=== PATIENT | female | born 1980 ===

== ENCOUNTER 2023-11-04 09:42 | Outpatient (AMB) | payer OTHER, SELFPAY ==
--- NOTE | 2023-11-04 09:48 | MHC.PC.OV ---
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 Allergies No Known Allergies Allergy (Verified 11/04/23 10:21) Medication List - Last Reconciled 11/04/23 by NURY Diana escitalopram oxalate (Lexapro) 5 mg PO DAILY levocetirizine 5 mg PO DAILY triamcinolone acetonide 0.025% 1 appl topical DAILY Tobacco use date assessed: 11/04/23 Dental Screening Dental Screen Date: 11/04/23 Did you have a dental visit in the last 12 months?: Yes Did you have a dental problem in the last 6 months where you did not have access to dental care?: No Was dental information given to patient?: Patient has dentist HPI HPI Comments History of Present Illness Details Patient is a 43-year-old female here to establish care and have annual physical exam. She states she is up-to-date on her mammogram. Is due for OBGYN appointment, will refer. She is up-to-date on her immunizations. She has a past medical history significant for anxiety, eczema. She has a chief complaint of increased anxiety, especially at night, which is interfering with her ability to sleep through the night. Denies any traumatic recent life events. She states that the medication Lexapro helped her with this, but she started feeling better and discontinued the medication on her own 6 months prior to this appointment. Denies SI HI, numbness, dizziness, lethargy, chest pain, shortness a breath. Patient is interested in starting the medication again. Patient has declined therapist at this time. Discussed with patient the benefits of going on a beta-jun based on blood pressure and EKG in office, however patient declined. She would like to take blood pressure measurements and heart rate measurements at home, and report numbers to the office in 2 weeks. PFSH Social History Housing: House e-Cigarette/Vaping Use: Never Used service: No Current occupational status: employed Current occupational exposures/hazards: No Cognitive needs: No Hearing needs: No Vision needs: No Questionnaire PHQ-9 Over the last 2 weeks, how often have you been bothered by any of the following problems? 1. Little interest or pleasure in doing things: not at all 2. Feeling down, depressed, or hopeless: not at all 3. Trouble falling or staying asleep, or sleeping too much: not at all 4. Feeling tired or having little energy: not at all 5. Poor appetite or overeating: not at all 6. Feeling bad about yourself - or that you are a failure or have let yourself or your family down: not at all 7. Trouble concentrating on things, such as reading the newspaper or watching television: not at all 8. Moving or speaking so slowly that other people could have noticed. Or the opposite - being so fidgety or restless that you have been moving around a lot more than usual: not at all 9. Thoughts that you would be better off or of hurting yourself in some way: not at all Total score: 0 Depression Screening Interpretation: Negative Depression Screening Done: Yes 16772 - PHQ-9 Billing: Yes Source: Developed by Drs. Alex Patel, Candy He, Peyman Stephens and colleagues, with an educational maddie from [employer]. Thrive Questionnaire Date Thrive assessed: 11/04/23 I am a: Patient What is your living situation today?: I have a steady place to live Within the past 12 months, did the food you bought not last and you didn't have the money to get more?: Never true Within the past 12 months, did you worry whether your food would run out before you got money to buy more?: Never true Do you have trouble paying for medicines?: Yes Do you have trouble getting transportation to medical appointments?: No Do you have trouble paying your heating and electricity bill?: No Do you have trouble taking care of your child, family member or friend?: No Do you have trouble with day-to-day activities such as bathing, preparing meals, shopping, managing finances, etc.?: No Are you currently unemployed and looking for a job?: No Are you interested in more education?: No Please select the resources that you would like help with: Paying for medicine AUDIT C Alcohol Use Questionnaire (AUDIT-C) 1. How often do you have a drink containing alcohol?: Never 3. How often do you have six or more drinks on one occasion?: Never Total Score: 0 Score Reviewed/Action Taken: Yes EAN-7 AMB Questionnaire EAN-7 Feeling nervous, anxious, or on edge: 2 = More than half the days Not being able to stop or control worryin = More than half the days Worrying too much about different things: 1 = Several days Trouble relaxin = More than half the days Being so restless that it is hard to sit still: 1 = Several days Becoming easily annoyed or irritable: 1 = Several days Feeling afraid as if something awful might happen: 2 = More than half the days Total EAN-7 score (0-4 normal; 5-9 mild; 10-14 moderate; 15-21 severe): 11 Source: Developed by Drs. Alex Patel, Candy He, Peyman Stephens and colleagues, with an educational maddie from [employer]. EAN-7 Assessment Billing EAN-7 Assessment Tool: EAN-7 Assessment 51652 Review of Systems Const Details: Constitutional : No Weight loss, No Fever, No Chills, No Fatigue, No Malaise ENT/Mouth : No sore throat, No Rhinorrhea Eyes: No Eye Pain, No Swelling, No Redness Cardiovascular : No Chest Pain, No SOB, No Dyspnea on Exertion, No Orthopnea, No Edema, No Palpitations Respiratory : No Cough, No Sputum, No Wheezing Gastrointestinal : No Nausea, No Vomiting, No Diarrhea, No Constipation, No abdominal Pain, No Hematochezia, No Melena Genitourinary : No Dysuria, No Urinary Frequency, No Hematuria, Musculoskeletal : No joint pain, No Myalgias, No Joint Swelling Skin : Admits some eczema on back of neck. Neuro : No Weakness, No Numbness, No Dizziness, No Headache Psych : Admits Anxiety/Panic, No Depression Heme/Lymph: No Bruising, No Bleeding,No Lymphadenopathy Endocrine : No Polyuria, No Polydipsia All other systems reviewed and are negative Physical exam (Primary Care) Vital Signs: Last Vital Signs Pulse 104 H 11/04/23 10:56 BP 140/88 H 11/04/23 09:49 Pulse Ox 95 11/04/23 09:49 Oxygen Delivery Method Room Air 11/04/23 09:49 Care Plan Goal for BP management: Patient would like to take blood pressure measurements at home and report numbers to the office in 2 weeks. BMI result Body Mass Index 27.7 Tobacco/Smoking Status: Tobacco use Status Tobacco use date assessed 11/04/23 11/04/23 09:51 e-Cigarette/Vaping Use Never Used 11/04/23 09:51 PHQ-9: PHQ-9 Score PHQ-9: Total score 0 11/04/23 12:11 Depression Screening Interpretation: Negative Thrive Assessment: Date of Thrive Assessment Date Thrive assessed 11/04/23 11/04/23 12:10 Const Other: Appearance: Alert.? Oriented X3.? No acute distress.? Head: Normocephalic, atraumatic, no step-offs or deformities Eyes: Pupils equal, round and reactive to light.? ENT: Pharynx normal.?TM intact, pearly birch. Neck: Normal inspection.? Neck supple.?Full ROM. CVS: Normal heart rate and rhythm.? Pulses normal.? Respiratory: No respiratory distress.? Breath sounds normal.? Abdomen: Soft and nontender.? Skin: Skin warm and dry.? Scaling and erythema of nape. Extremities: No lower extremity edema.? Back: No midline tenderness, no C-spine tenderness, full range of motion, no CVA tenderness bilaterally Neuro: Oriented X 3.? No motor deficit.? No sensory deficit. CN 2-12 intact Office Procedures EKG 32140-[id number], Complete Assessment and Plan Assessment & Plan (1) Eczema: Comment: Will prescribe patient topical cream for eczema. 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 Code(s): L30.9 - Dermatitis, unspecified Qualifiers: Eczema type: other Qualified Code(s): L30.8 - Other specified dermatitis (2) Anxiety: Comment: The patient has experienced an increase in anxiety since abruptly stopping her Lexapro. Patient is started back on Lexapro and has been educated on how to take this medication properly. Will also prescribe hydroxyzine to be taken p.r.n. at night for anxiety insomnia. Patient offered therapy referral, declined. Patient has been educated on signs of worsening symptoms and when to report to the office or when to present to the ER. Code(s): F41.9 - Anxiety disorder, unspecified Plan: Take your medications as prescribed. If you were prescribed antibiotics today, it is important that you take your medication to their entirety, do not skip any doses, do not finish them early. Follow-up with your primary care provider this week. Return to the emergency department with new or worsening symptoms. 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 Code(s): J34.89 - Other specified disorders of nose and nasal sinuses (4) Tachycardia: Comment: Patient's heart rate in office tachycardic. In office EKG performed. Will refer patient for echocardiogram and Cardiology. Code(s): R00.0 - Tachycardia, unspecified Plan: Patient has been educated on signs of worsening symptoms and when to report to the office or when to present to the emergency room. Patient states she understands. Orders: Orders AMB EKG-In Office Today R00.0 - Tachycardia, unspecified Comprehensive Met. Panel Today Z91.89 - Other specified personal risk factors, not elsewhere classified UA CC w/rflx Micro + Cult Today E86.0 - Dehydration Complete Blood Count Auto Diff Today Z13.0 - Encounter for screening for diseases of the blood and blood-forming organs and certain disorders involving the immune mechanism Lipid Panel Today E78.5 - Hyperlipidemia, unspecified Vitamin D 25-OH (D2 and D3) Today Z13.21 - Encounter for screening for nutritional disorder TSH reflex Free T4 Today E03.9 - Hypothyroidism, unspecified CA echo transthoracic complete Today R00.0 - Tachycardia, unspecified Referrals HERB COUNSELOR Referral Z12.4 - Encounter for screening for malignant neoplasm of cervix Allergy & Immunology Referral L30.9 - Dermatitis, unspecified Cardiology Referral R00.0 - Tachycardia, unspecified Medications: New fluticasone propionate 50 mcg/actuation (Allergy Relief (fluticasone)) administer into each nostril 1 spray intranasal DAILY 16 grams 0RF escitalopram oxalate (Lexapro) 5 mg PO DAILY 90 tabs 0RF triamcinolone acetonide 0.025% 1 appl topical DAILY 15 grams 0RF levocetirizine 5 mg PO DAILY 30 tabs 0RF hydroxyzine HCl 25 mg PO BEDTIME 30 tabs 0RF Coding Level of Care Code Est Pt Level 3 (64292) Diagnoses Other eczema L30.8 Eczema type: other Anxiety F41.9 Rhinorrhea J34.89 Tachycardia R00.0 CPT Codes EKG - CPT: [id number], Complete ([id number]) Additional Codes EAN-7 Assessment Billing - EAN-7 Assessment Tool: EAN-7 Assessment 26652 ([id number]) Time Spent (min) 40
[2023-11-04 09:49] VITALS: BP 140/88; PULSE 120; O2SAT 95; BMI 27.7
[2023-11-04 10:56] VITALS: PULSE 104
== END 2023-11-04 12:38 | disposition home or self-care (01) ==
PROVIDERS: Visit Provider Nurse Practitioner Primary Care
DX: L30.8 Other specified dermatitis (principal); F41.9 Anxiety disorder, unspecified; J34.89 Other specified disorders of nose and nasal sinuses; R00.0 Tachycardia, unspecified
CPT/HCPCS: 93000; 99204

== ENCOUNTER 2023-11-07 08:47 | Outpatient (REF) | payer OTHER, SELFPAY ==
[2023-11-07 11:47] LABS: Appearance Urine Clear; Color Urine Yellow; Glucose Urine UA Negative (Negative); Leukocyte Esterase Urine Negative (Negative); Nitrite Urine Negative (Negative); UMIC TRIGGER UACC YES; Urine Blood Moderate (2+) (Negative); Urine Ketones Negative (Negative); Urine Protein Negative (Neg-Trace)
[2023-11-07 11:51] LABS: Bacteria Urine Trace (None Seen); Hyaline Casts Urine 0-2 /LPF (0-2); UACC Culture Trigger YES
[2023-11-07 12:03] LABS: MANUAL DIFF FLAG NO
[2023-11-07 12:25] LABS: Basophils Percent Auto 0.2 % (0-2); Eosinophils Absolute Auto 0.1 X10*3/uL (0.0-0.4); Eosinophils Percent Auto 1.2 % (0-4); Hematocrit 40.1 % (37.0-47.0); Hemoglobin 13.3 g/dl (12.0-16.0); Imm Gran Abs Auto 0.01 X10*3/uL (0.00-0.03); Imm Gran Pct Auto 0.2 % (0.0-0.4); Lymphocytes Percent Auto 19.4 % (20-40); Mean Corpuscular HGB Conc 33.2 g/dl (31.0-35.0); Mean Corpuscular Hemoglobin 28.7 pg (27.0-33.0); Mean Corpuscular Volume 86.6 fL (80.0-98.0); Mean Platelet Volume 10.6 fL (9.4-12.3); Monocytes Absolute Auto 0.4 X10*3/uL (0.1-1.2); Monocytes Percent Auto 7.1 % (2-11); Neutrophils Absolute Auto 3.7 x10*3/uL (2.0-8.3); Neutrophils Percent Auto 71.9 % (45-73); Platelet Count 284 X10*3/uL (160-400); Red Blood Count 4.63 X10*6/uL (4.20-5.50); Red Cell Distribution Width 12.4 % (11.0-16.0); White Blood Count 5.2 X10*3/uL (4.8-10.8)
[2023-11-07 12:52] LABS: Alanine Aminotransferase 13 U/L (0-31); Albumin Level 4.6 g/dL (3.5-5.0); Alkaline Phosphatase 66 U/L (39-117); Anion Gap 14 (12-20); Aspartate Amino Transferase 16 U/L (5-31); Bilirubin Total 0.5 mg/dL (0.0-1.0); Blood Urea Nitrogen 14 mg/dL (9-16); Calcium 9.8 mg/dL (8.4-10.2); Carbon Dioxide 25 mmol/L (22-29); Chloride 105 mmol/L (96-108); Cholesterol 176 mg/dL (<200); Estimated Glomerular Filt Rate > 60; Glucose Random 100 mg/dL (60-115); HDL Cholesterol 50 mg/dL (>40); LDL Cholesterol Calculated 108 mg/dL (<100); Sodium 140 mmol/L (135-145); TSH reflex Free T4 2.27 uIU/mL (0.32-4.0); Total Protein 7.8 g/dL (6.5-8.0); Triglycerides 92 mg/dL (<150)
[2023-11-11 16:48] LABS: Vitamin D 25-OH, D2 <4 ng/mL; Vitamin D 25-OH, D3 21 ng/mL; Vitamin D 25-OH, Total 21 ng/mL (30-100)
== END 2023-11-07 08:48 | disposition home or self-care (01) ==
LOC: HO.HMGCLDS 08:47
PROVIDERS: PCP Nurse Practitioner Primary Care; Visit Provider Nurse Practitioner Primary Care
DX: Z13.0 Encounter for screening for diseases of the blood and blood-forming organs and certain disorders involving the immune mechanism (principal)
CPT/HCPCS: 36415; 80053; 80061; 81001; 82306; 84443; 85025; 87086

== ENCOUNTER → 2023-11-20 08:12 | Outpatient (REF) | payer OTHER, SELFPAY ==
--- NOTE | 2023-11-20 08:14 | CA_ITS ---
Transthoracic Echocardiogram Patient (Last, First, Middle): Zoey Castillo, Gender: Female Date of : 1980 Age: 43 Procedure Date: 11/20/2023 Procedure Type: Transthoracic Echocardiogram Location: OP Height: 157.48 cm Weight: 69.85 kg BSA: 1.71 m2 Heart Rate: 110 bpm BP: 132 / 78 mmHg Mold Burner: NESS Referring MD: Joseph ARRINGTON Tobacco Dipper: Andres John MD Symptoms: R00.0 - Tachycardia, unspecified Study Quality: Adequate ECG Rhythm: Sinus Tachycardia Conclusions: - Essentially normal study Findings Left Ventricle Normal left ventricular cavity size. There is normal left ventricular wall thickness. The left ventricular systolic function is hyperdynamic. The visually estimated ejection fraction is >70%. Spectral Doppler is indicative of a normal filling pattern. Right Ventricle Normal right ventricular cavity size and systolic function. Atria Both atria are normal in size. Interatrial shunt cannot be excluded. Aortic Valve Normal aortic valve structure and function. There is no aortic valve stenosis. There is no aortic valve regurgitation. Mitral Valve Normal mitral valve structure and function. There is trace mitral valve regurgitation. There is no mitral valve stenosis. Pulmonic Valve The pulmonic valve is likely normal. Tricuspid Valve Normal tricuspid valve structure. Tricuspid regurgitation envelope is inadequate for calculation of right ventricular systolic pressure. Normal right atrial pressure. Great Vessels All visible segments of the aorta are normal in size. The visualized portions of the pulmonary artery and branches are normal. Venous The inferior vena cava is normal in size and collapses greater than 50% with inspiration. Pericardium/Pleural There is no evidence of pericardial effusion. Prior Study Comparison No prior study available for comparison. delay in reporting due to technical issues Measurements 2D Linear Measurements IVSd: 0.85 0.6-0.9/0.6-1.0 cm LVIDd: 4.13 3.9-5.3/4.2-5.9 cm LVIDd Index: 2.42 2.4-3.2/2.2-3.1 cm/m2 LVIDs: 2.92 2.0-3.6 cm LVPWd: 0.62 0.7-1.1 cm LA Diam: 2.80 2.7-3.8/3.0-4.0 cm LAIDs Index: 1.64 1.5-2.3 cm/m2 LV Mass: 109.48 67-162/88-224 g LV Mass Index: 64.02 43-95/49-115 g/m2 LVOT Diam: 2.20 3.0+(-)1.3 cm 2D Systolic Function EF 4C: 80.20 >55% EF 2C: 70.70 >55% EF BiP: 75.80 >55% Mitral Valve MV Pk E: 0.86 MV PK A: 0.78 MV Decel Time: 91.00 E/A: 1.10 E'Lateral: 12.80 E'Medial: 9.03 E/E' Med: 9.50 E/E' Lat: 6.70 PHT: 27.00 MVA PHT: 8.15 Decel [place]: 9.40 Aortic Valve AoV Pk Leonard: 1.50 AoV Pk Grad: 9.00 VICKY: 2.67 LVOT LVOT Pk Leonard: 1.12 LVOT Mn Leonard: 0.78 LVOT VTI: 0.22 LVOT Pk Grad: 5.00 LVOT Mn Grad: 3.00 LVOT Diam: 2.20 LVOT Area: 3.80 Diastolic Function MV Pk E: 0.86 MV Pk A: 0.78 E/A: 1.10 E'Medial: 9.03 E/E' Med: 9.50 E' Laterial: 12.80 E/E' Lat: 6.70 Right Ventricle TAPSE (mm): 26.50 TVS' Leonard: 13.70 Tricuspid Valve RA Press: 3.00 Great Vessels Aorta Sinus of Valsalva: 3.10 2.0-3.5 cm Ao Asc: 3.00 2.1-3.4 cm Pulmonary Valve PV Pk Leonard: 1.12 Peak PV Grad: 5.00 Updated in Other Vendor System with Status of Final Andres John MD electronically signed on 11/22/2023 8:42:31 AM with status of Final
== END ==
LOC: HO.CARD 08:12
PROVIDERS: PCP Nurse Practitioner Primary Care; Visit Provider Nurse Practitioner Primary Care
DX: R00.0 Tachycardia, unspecified (principal)
CPT/HCPCS: 93306

== ENCOUNTER → 2023-11-20 08:14 | Outpatient (BNV) | payer OTHER, SELFPAY | PROVIDERS: PCP Nurse Practitioner Primary Care; Visit Provider Internal Medicine Cardiovascular Disease | DX: R00.0 Tachycardia, unspecified (principal) | CPT/HCPCS: 93306 ==

== ENCOUNTER 2024-01-27 11:16 | Outpatient (AMB) | payer OTHER, SELFPAY ==
[2024-01-27 11:38] VITALS: BP 140/78; PULSE 119; O2SAT 100; BMI 26.3
--- NOTE | 2024-01-27 11:38 | A.OFFPC_ITS ---
Vital Signs 01/27/24 11:38 Height 5 ft 2 in Weight 144 lb BMI 26.3 BP 140/78 H Blood Pressure Location Rt brachial Position Sitting Pulse 119 H Pulse Source Pulse Oximeter Pulse Oximetry (%) 100 Oxygen Delivery Method Room Air Intake Visit Reasons: Constipation Intake Note: Pt is here for constipation for about 2 months pt has not tried any remedies Allergies No Known Allergies Allergy (Verified 01/27/24 12:12) Medication List - Last Reconciled 01/27/24 by NURY Diana fluticasone propionate 50 mcg/actuation (Allergy Relief (fluticasone)) 1 spray intranasal DAILY levocetirizine 5 mg PO DAILY Tobacco use date assessed: 01/27/24 Dental Screening Dental Screen Date: 01/27/24 Did you have a dental visit in the last 12 months?: Yes Did you have a dental problem in the last 6 months where you did not have access to dental care?: No Was dental information given to patient?: Patient has dentist HPI HPI Comments History of Present Illness Details Patient is a 44-year-old female in today for sick visit. Patient states that she regional made the appointment due to constipation. Patient believes the constipation was caused from SSRI she was taking, escitalopram, and stop taking the medication. The patient states that the constipation cleared up and she has had no issues for the past 20 days. She also feels that her anxiety is under control and does not need the medication for that. The patient has hypertension and tachycardia at today's appointment which is consistent with previous appointments. Patient believes she has white coat synd ravi. Echocardiogram came back effectively normal. The patient has been instructed to take blood pressure and heart rate measurements every day, to record those value, to get back to the office within 2 weeks if values are still elevated. [facility] Social History Housing: House Patient Tobacco Use Status: Never used Tobacco e-Cigarette/Vaping Use: Never Used service: No Current occupational status: employed Current occupational exposures/hazards: No Cognitive needs: No Hearing needs: No Vision needs: No Questionnaire Thrive Questionnaire Date Thrive assessed: 11/04/23 AUDIT C Alcohol Use Questionnaire (AUDIT-C) 1. How often do you have a drink containing alcohol?: Never Total Score: 0 Review of Systems Const All systems reviewed & are unremarkable except as noted in HPI and below Physical exam (Primary Care) Vital Signs: Last Vital Signs Pulse 119 H 01/27/24 11:38 BP 140/78 H 01/27/24 11:38 Pulse Ox 100 01/27/24 11:38 Oxygen Delivery Method Room Air 01/27/24 11:38 Care Plan Goal for BP management: Patient will record pulse and blood pressure readings at home every day for the next 2 weeks get back to the office with values. BMI result Body Mass Index 26.3 Tobacco/Smoking Status: Tobacco use Status Tobacco use date assessed 01/27/24 01/27/24 11:43 Patient Tobacco Use Status Never used Tobacco 01/27/24 11:43 e-Cigarette/Vaping Use Never Used 01/27/24 11:43 Thrive Assessment: Date of Thrive Assessment Date Thrive assessed 11/04/23 01/27/24 11:43 Const Other: Appearance: Alert.? Oriented X3.? No acute distress.? CVS: Normal heart rate and rhythm.? Pulses normal.? Respiratory: No respiratory distress.? Breath sounds normal.? Abdomen: Soft and nontender.? Neuro: Oriented X 3.? No motor deficit.? No sensory deficit. CN 2-12 intact Results Reviewed Results Reviewed: Sodium 140 135-145 mmol/L Potassium 4.0 3.3-5.1 mmol/L CL 105 96-108 mmol/L CO2 25 22-29 mmol/L Gap 14 12-20 BUN 14 9-16 mg/dL Creat 0.77 0.5-1.4 mg/dL EGFR > 60 NOTE: For -[place]inames[place] individuals, multiply the result by 1.210. Chronic Kidney Disease: Estimated GFR < 60 mL/min/1.73m2 Severe Kidney Disease: Estimated GFR < 15 mL/min/1.73m2 Glucose, Random 100 60-115 mg/dL CA 9.8 8.4-10.2 mg/dL Total Bili 0.5 0.0-1.0 mg/dL AST (GOT) 16 5-31 U/L ALT (GPT) 13 0-31 U/L Protein, Total 7.8 6.5-8.0 g/dL Alb 4.6 3.5-5.0 g/dL Triglyceride 92 <150 mg/dL Desirable Triglyceride: less than 150 mg/dL Borderline High Triglyceride 150-199 mg/dL High Triglyceride: 200-499 mg/dL Very High Triglyceride: greater than or equal to 5OO mg/dL Cholesterol 176 <200 mg/dL Desirable Cholesterol: less than 200 mg/dL Borderline High Cholesterol: 200-239 mg/dL High Cholesterol: greater than 239 mg/dL LDL Calculated 108 H <100 mg/dL Desirable LDL: less than 100 mg/dL Near Optimal/Above Optimal LDL: 110-129 mg/dL Borderline High LDL: 130-159 mg/dL High LDL: 160-189 mg/dL Very High LDL: greater than or equal to 190 mg/dL HDL 50 >40 mg/dL Desirable HDL: greater than 40 mg/dL Note: This HDL assay may give artificially low results in patients with liver disease. Alk Phos 66 39-117 U/L TSH 2.27 0.32-4.0 uIU/mL Assessment and Plan Assessment & Plan (1) Constipation: Comment: Patient states that constipation has resolved, will prescribe senna if constipation returns. Code(s): K59.00 - Constipation, unspecified Qualifiers: Constipation type: unspecified constipation type Qualified Code(s): K59.00 - Constipation, unspecified (2) Hypertension: Comment: Patient will take blood pressure measurements at home, will record values and call office in two weeks. Code(s): I10 - Essential (primary) hypertension Qualifiers: Hypertension type: unspecified Qualified Code(s): I10 - Essential (primary) hypertension Plan: Patient has follow-up physical exam and to months. Orders: Orders Comprehensive Met. Panel Today Z91.89 - Other specified personal risk factors, not elsewhere classified MM tomosynthesis screening BI Today Z12.31 - Encounter for screening mammogram for malignant neoplasm of breast Complete Blood Count Auto Diff Today Z13.0 - Encounter for screening for disea ses of the blood and blood-forming organs and certain disorders involving the immune mechanism Medications: New blood pressure monitor As directed 1 ea 0RF sennosides (senna) 8.6 mg PO DAILY PRN 30 caps 0RF constipation Coding Level of Care Code Est Pt Level 3 (56001) Diagnoses Constipation, unspecified constipation type K59.00 Constipation type: unspecified constipation type Hypertension, unspecified type I10 Hypertension type: unspecified Time Spent (min) 27
== END 2024-01-27 14:45 | disposition home or self-care (01) ==
PROVIDERS: PCP Nurse Practitioner Primary Care; Visit Provider Nurse Practitioner Primary Care
DX: K59.00 Constipation, unspecified (principal); I10 Essential (primary) hypertension
CPT/HCPCS: 99213

== ENCOUNTER 2024-01-27 12:23 | Outpatient (REF) | payer OTHER, SELFPAY ==
[2024-01-27 13:55] LABS: MANUAL DIFF FLAG NO
[2024-01-27 14:02] LABS: Basophils Percent Auto 0.2 % (0-2); Eosinophils Absolute Auto 0.1 X10*3/uL (0.0-0.4); Eosinophils Percent Auto 0.8 % (0-4); Hematocrit 39.7 % (37.0-47.0); Hemoglobin 13.3 g/dl (12.0-16.0); Imm Gran Abs Auto 0.01 X10*3/uL (0.00-0.03); Imm Gran Pct Auto 0.2 % (0.0-0.4); Lymphocytes Absolute Auto 1.2 X10*3/uL (1.2-4.9); Lymphocytes Percent Auto 19.4 % (20-40); Mean Corpuscular HGB Conc 33.5 g/dl (31.0-35.0); Mean Corpuscular Hemoglobin 28.9 pg (27.0-33.0); Mean Corpuscular Volume 86.1 fL (80.0-98.0); Mean Platelet Volume 10.5 fL (9.4-12.3); Monocytes Absolute Auto 0.6 X10*3/uL (0.1-1.2); Monocytes Percent Auto 9.2 % (2-11); Neutrophils Absolute Auto 4.4 x10*3/uL (2.0-8.3); Neutrophils Percent Auto 70.2 % (45-73); Platelet Count 309 X10*3/uL (160-400); Red Blood Count 4.61 X10*6/uL (4.20-5.50); Red Cell Distribution Width 12.5 % (11.0-16.0); White Blood Count 6.3 X10*3/uL (4.8-10.8)
[2024-01-27 15:00] LABS: Alanine Aminotransferase 18 U/L (0-31); Albumin Level 4.4 g/dL (3.5-5.0); Alkaline Phosphatase 69 U/L (39-117); Anion Gap 10 (12-20); Aspartate Amino Transferase 14 U/L (5-31); Bilirubin Total 0.3 mg/dL (0.0-1.0); Blood Urea Nitrogen 15 mg/dL (9-16); Calcium 9.2 mg/dL (8.4-10.2); Carbon Dioxide 27 mmol/L (22-29); Chloride 106 mmol/L (96-108); Estimated Glomerular Filt Rate > 60; Glucose Random 87 mg/dL (60-115); Potassium 3.8 mmol/L (3.3-5.1); Sodium 139 mmol/L (135-145); Total Protein 7.6 g/dL (6.5-8.0)
== END 2024-01-27 12:24 | disposition home or self-care (01) ==
LOC: HO.HMGCLDS 12:23
PROVIDERS: PCP Nurse Practitioner Primary Care; Visit Provider Nurse Practitioner Primary Care
DX: Z13.0 Encounter for screening for diseases of the blood and blood-forming organs and certain disorders involving the immune mechanism (principal); Z91.89 Other specified personal risk factors, not elsewhere classified
CPT/HCPCS: 36415; 80053; 85025

== ENCOUNTER 2024-03-03 09:57 | Outpatient (REF) | payer OTHER, SELFPAY ==
[2024-03-03 14:13] LABS: CT PCR NOT DETECTED (Not Detect.); NG PCR NOT DETECTED (Not Detect.)
[2024-03-10 12:49] LABS: HPV mRNA E6/E7 rflx Not Detected (Not Detected)
== END 2024-03-03 09:58 | disposition home or self-care (01) ==
LOC: HO.LNP 09:57
PROVIDERS: PCP Nurse Practitioner Primary Care; Visit Provider Advanced Practice Midwife
DX: N89.8 Other specified noninflammatory disorders of vagina (principal); Z01.419 Encounter for gynecological examination (general) (routine) without abnormal findings
CPT/HCPCS: 0353U; 81025; 87624; 88142; 99386

== ENCOUNTER 2024-03-03 09:57 | Outpatient (AMB) | payer OTHER, SELFPAY ==
--- NOTE | 2024-03-03 09:59 | MHC.OFFVIS ---
Vital Signs 03/03/24 10:07 Height 5 ft 2 in Weight 145 lb BMI 26.5 BP 142/74 H Intake Visit Reasons: New Patient Annual Intake Note: having white discharge after periods with cramping Ground Crewman Aircraft Support Required: Yes Ground Crewman Aircraft Support Language: [place] Leonean Ground Crewman Aircraft Support Name: [email or web address] [id number] Information Interpreted: non-clinical & clinical General Manager: General Manager Present (Ariel) Accompanied by: Daughter Allergies No Known Allergies Allergy (Verified 03/03/24 10:08) Is last menstrual period known: Yes Last menstrual period: 02/17/24 Post menopausal: No HPI Comments Details: She is a premenopausal woman presenting for new patient annual examination w/her daughter Farzaneh. Doing well with no concerns. She tries to eat healthy, taking a vitamin, and stays active with exercise w/walking. Regular monthly menses x6-7. Currently is sexually active w/, uses condoms. She denies vaginal itching and irritation. STI screening offered; she accepts. She declines bloodwork. Denies family history of breast or colon cancer. FH ovarian cancer-mother. Last pap smear 2021, negative. Mammogram: booked for 2023. [facility] Family History (Updated 03/03/24 @ 10:10 by GERALDO Mon) Mother Ovarian cancer Social History Housing: House Patient Tobacco Use Status: Never used Tobacco e-Cigarette/Vaping Use: Never Used service: No Current occupational status: employed Current occupational exposures/hazards: No Cognitive needs: No Hearing needs: No Vision needs: No Female Reproductive History Menstrual Age of Menarche: 13 Duration of menses: 6-7 days Date of last menstrual period: 02/17/24 control method: none Total pregnancies: 2 Full term: 2 Number of Living Children: 2 Review of Systems Const All systems reviewed & are unremarkable except as noted in HPI and below Reports as per HPI Eyes Reports no additional complaints ENT Reports no additional complaints Card Reports no additional complaints Resp Reports no additional complaints GI Reports as per HPI and Reports no additional complaints Reports as per HPI Musc Reports no additional complaints Skin/Breast Reports as per HPI Neuro Reports no additional complaints Psych Reports no additional complaints Endo Reports no additional complaints Rivera/Lymph Reports no additional complaints Aller/Immun Reports no additional complaints Physical Exam Vital Signs: Last Vital Signs BP 142/74 H 03/03/24 10:07 BMI result Body Mass Index 26.5 Const General: cooperative, healthy appearing, no acute distress, well developed and alert Orientation/consciousness: patient oriented x3 HEENT Head: Yes normal to inspection Eyes General: appearance normal, both eyes and all related structures Neck Neck: Yes normal visual inspection Thyroid: Thyroid normal Chest Chest palpation & inspection: normal inspection of the chest and other (no puckering, dimpling, peau de orange, retraction, discharge, masses) Breast/axilla inspection: normal inspection of the breasts Breast/axilla palpation: normal palpation of the breasts Resp Effort & Inspection: normal respiratory effort GI Inspection: Yes normal to inspection Palpation (GI): Soft to palpation Rectal Exam - Female: deferred General: Yes bladder normal to palpation External Female Exam: normal external appearance and normal appearance of the urethra Speculum Exam - Vagina: normal appearance of the vagina, normal palpation and normal vaginal discharge Speculum Exam - Cervix: normal appearance of the cervix and normal palpation Bimanual exam- vagina & uterus: normal bimanual exam, normal palpation, bladder normal to palpation, normal palpation, non-tender and enlarged (positioned to the right) Bimanual Exam- Adnexa, other: no masses Skin General skin exam: no rashes or lesions noted Rashes: no rashes Neuro General: patient oriented x3 Cognition (Neuro): normal cognition Extrem General: Yes normal to inspection Psych Attitude: cooperative Thought process: Normal thought process present Results AMB Test Urine AMB Test Urine Negative Last Edit by GERALDO Mon on 03/03/24 10:53 Results Reviewed Results Reviewed: Laboratory Last Values Tst Clinic Negative 03/03/24 10:52 Assessment & Plan Assessment & Plan (1) Encounter for well woman exam with routine gynecological exam: Code(s): Z01.419 - Encounter for gynecological examination (general) (routine) without abnormal findings Category: Medical Plan: Discussed: Current recommendations for pap smears per ASCCP guidelines. Breast awareness and periodic breast exams. Maintain a healthy lifestyle including a well balanced diet and routine exercise. Pelvic ultrasound due to uterine findings, follow up in person for test results. Mammogram yearly. Patient verbalizes understanding and agrees to the plan of care. She was given opportunity to ask questions and all questions were answered to the best of my ability. RTO in one year for annual packaging engineer examination. This note is constructed using voice recognition software. While every effort has been made to ensure accuracy, airborne operations superintendent errors may have been included. Orders: Orders AMB HCG Urine Test Today Z32.02 - Encounter for test, result negative US pelvic and transvaginal Today N85.2 - Hypertrophy of uterus CT NG by PCR Today N89.8 - Other specified noninflammatory disorders of vagina Pap Smear Today Z12.4 - Encounter for screening for malignant neoplasm of cervix Coding Level of Care Code New Pt Prev Care 40-64y(75537) Diagnoses Encounter for well woman exam with routine gynecological exam Z01.419
[2024-03-03 10:07] VITALS: BP 142/74; BMI 26.5
== END 2024-03-03 10:52 | disposition home or self-care (01) ==
PROVIDERS: PCP Nurse Practitioner Primary Care; Visit Provider Advanced Practice Midwife
DX: Z32.02 Encounter for pregnancy test, result negative (principal); Z01.419 Encounter for gynecological examination (general) (routine) without abnormal findings
CPT/HCPCS: 99386

== ENCOUNTER 2024-03-12 10:34 | Outpatient (REF) | payer OTHER, SELFPAY ==
--- NOTE | ~2024-03-12 | US_ITS ---
EXAMINATION: US PELVIS COMPLETE CLINICAL INFORMATION: Uterine fibroids; the last menstrual period was one month prior. COMPARISON: None. TECHNIQUE: Transabdominal imaging was performed. FINDINGS: The uterus is of normal size and echogenicity, measuring 12.0 x 5.0 x 6.0 cm. The uterus is anteverted. A regular homogeneous endometrium is identified measuring 1.5 cm. There is focal thickening of the endometrial segment with increased vascularity, raising the possibility of underlying polyp. There is a tiny amount nonspecific endocervical fluid. FIBROIDS: There are 4 fibroids seen. 1. Location: Posterior fundus, submucosal. Size: 1.8 x 2.1 x 1.6 cm. Fibroid characteristics: Heterogeneous echotexture. 2. Location: Posterior upper body, subserosal. Size: 2.0 x 1.4 x 1.6 cm. Fibroid characteristics: Heterogeneous echotexture. 3. Location: Anterior upper body, submucosal. Size: 2.1 x 1.8 x 1.7 cm. Fibroid characteristics: Heterogeneous echotexture, with foci of cystic degeneration. 4. Location: Anterior upper body, submucosal. Size: 1.4 x 1.3 x 1.2 cm. Fibroid characteristics: Heterogeneous echotexture. Both ovaries are of normal size and echogenicity. The right ovary measures 1.8 x 2.1 x 1.5 cm for a volume of 3.0 mL. The left ovary measures 2.6 x 2.1 x 2.7 cm for a volume of 7.7 mL. There is no pelvic free fluid. No adnexal mass is seen. US/US pelvic and transvaginal IMPRESSION: 1. There is uterine fibroid disease. 2. The endometrial stripe thickness is upper normal. There is focal thickening of the fundal portion of the endometrium, with increased vascularity. Underlying polyp is not excluded. This could be more fully evaluated with hysterosonography or MRI, if clinically indicated. Gynecology evaluation and management is recommended. 3. There is scant anechoic fluid within the endocervical canal.
== END 2024-03-12 10:35 | disposition home or self-care (01) ==
LOC: HO.US 10:34
PROVIDERS: PCP Nurse Practitioner Primary Care; Visit Provider Advanced Practice Midwife
DX: N85.2 Hypertrophy of uterus (principal)
CPT/HCPCS: 76830; 76856

== ENCOUNTER 2024-08-11 09:20 | Outpatient (AMB) | payer OTHER, SELFPAY ==
--- NOTE | 2024-08-11 09:40 | MHC.OFFVIS ---
Intake Visit Reasons: Ultrasound follow up Wearing Apparel Assembler Required: Yes Wearing Apparel Assembler Language: Czech Wearing Apparel Assembler Services: Wearing Apparel Assembler Present Wearing Apparel Assembler Name: Daughter Farzaneh Solution Manager: Solution Manager Present Accompanied by: Daughter Allergies No Known Allergies Allergy (Verified 08/11/24 09:41) Is last menstrual period known: Yes HPI Comments Details: Patient is here today for a follow up pelvic ultrasound results accompanied by her daughter, Heather Castillo who is also her educational interpreter today. She has signed a refusal form for educational interpreter services today. History of prior examination with an enlarged uterus. History of regular cycles lasting up to 6 days. She reports occasional pelvic bloating. [facility] History (Updated 08/11/24 @ 10:22 by Andreea Avila CNM) Abnormal finding on ultrasound Family History (Updated 03/03/24 @ 10:10 by GERALDO Mon) Mother Ovarian cancer Social History Housing: House Patient Tobacco Use Status: Never used Tobacco e-Cigarette/Vaping Use: Never Used service: No Current occupational status: employed Current occupational exposures/hazards: No Cognitive needs: No Hearing needs: No Vision needs: No Female Reproductive History Menstrual Age of Menarche: 13 Review of Systems Const All systems reviewed & are unremarkable except as noted in HPI and below Endo Reports no additional complaints Physical Exam Const General: cooperative, healthy appearing and no acute distress Psych Appearance: well kempt Attitude: cooperative Thought process: Normal thought process present Results Reviewed Results Reviewed: [address] [address] Ultrasound Report Signed Patient: Zoey Castillo MR#: [id number] : 1980 Acct:[id number] Age/Sex: 44 / F ADM Date: 03/12/24 Loc: HO.US Attending Dr: Andreea Avila CNM Ordering Physician: Andreea Avila CNM Date of Service: 03/12/24 Procedure(s): US pelvic and transvaginal Accession Number(s): [id number] cc: Joseph Cadena; Andreea Avila CNM~ EXAMINATION: US PELVIS COMPLETE CLINICAL INFORMATION: Uterine fibroids; the last menstrual period was one month prior. COMPARISON: None. TECHNIQUE: Transabdominal imaging was performed. FINDINGS: The uterus is of normal size and echogenicity, measuring 12.0 x 5.0 x 6.0 cm. The uterus is anteverted. A regular homogeneous endometrium is identified measuring 1.5 cm. There is focal thickening of the endometrial segment with increased vascularity, raising the possibility of underlying polyp. There is a tiny amount nonspecific endocervical fluid. FIBROIDS: There are 4 fibroids seen. 1. Location: Posterior fundus, submucosal. Size: 1.8 x 2.1 x 1.6 cm. Fibroid characteristics: Heterogeneous echotexture. 2. Location: Posterior upper body, subserosal. Size: 2.0 x 1.4 x 1.6 cm. Fibroid characteristics: Heterogeneous echotexture. 3. Location: Anterior upper body, submucosal. Size: 2.1 x 1.8 x 1.7 cm. Fibroid characteristics: Heterogeneous echotexture, with foci of cystic degeneration. 4. Location: Anterior upper body, submucosal. Size: 1.4 x 1.3 x 1.2 cm. Fibroid characteristics: Heterogeneous echotexture. Both ovaries are of normal size and echogenicity. The right ovary measures 1.8 x 2.1 x 1.5 cm for a volume of 3.0 mL. The left ovary measures 2.6 x 2.1 x 2.7 cm for a volume of 7.7 mL. There is no pelvic free fluid. No adnexal mass is seen. US/US pelvic and transvaginal IMPRESSION: 1. There is uterine fibroid disease. 2. The endometrial stripe thickness is upper normal. There is focal thickening of the fundal portion of the endometrium, with increased vascularity. Underlying polyp is not excluded. This could be more fully evaluated with hysterosonography or MRI, if clinically indicated. Gynecology evaluation and management is recommended. 3. There is scant anechoic fluid within the endocervical canal. Dictated By: Juan Pablo Larson MD Signed By: <Electronically signed by Juan Pablo Larson MD in OV> 03/30/24 0924 DD/ 1126 TD/TT: Agronomy Teacher: BELINDA Assessment & Plan Assessment & Plan (1) Fibroid: Code(s): D21.9 - Benign neoplasm of connective and other soft tissue, unspecified Category: Medical (2) Enlarged uterus: Code(s): N85.2 - Hypertrophy of uterus Category: Medical (3) Abnormal finding on ultrasound: Code(s): R93.89 - Abnormal findings on diagnostic imaging of other specified body structures Category: Medical Plan Discussed: Ultrasound findings including fibroids-4, location and size, and thickening of the endometrial- possible endometrial polyp. Counseled re: Leiomyoma: common pelvic neoplasm. Differential diagnosis-may include but not limited to- leiomyosarcoma which is a rare uterine sarcoma 3-7/100,000, difficult to distinguish from fibroids on ultrasound from uterine sarcoma's. Unlikely any single test will have a highly positive predictive value. Hysterectomy is not recommended for sole purpose of excluding malignant neoplasm. Consult for surgical exploration, medical treatment, other treatments-Interventional Radiology, verses expectant management, pros and cons, risks and benefits. Patient prefers expected management. Expectant management follow up in 6 months, then yearly for stability. Orders placed for 09/09/2024-with follow up ultrasound results in office. Report any PMB. Pelvic pressure, bloating, or pain. Referral to MD if indicated for level of care if indicated. Copy of recent ultrasound and Pap screening given to patient. (Endometrial findings of thickened region possible endometrial polypocal thickening of the endometrial segment with increased vascularity, raising the possibility of underlying polyp. There is a tiny amount nonspecific endocervical fluid.)-recommended hysteroscopy for further evaluation and removal if polyp is found. Patient prefers female provider only-referral placed to [facility] request for a female provider. All of her questions and concerns were addressed to the best of my ability and shared decision making. She is agreeable to the plan of care. This note is constructed using voice recognition software. While every effort has been made to ensure accuracy, surface lay out technician errors may have been included. Orders: Orders US pelvic and transvaginal 08/31/24 D21.9 - Benign neoplasm of connective and other soft tissue, unspecified Referrals ALTERATIONS WORKROOM CLERK Referral D21.9 - Benign neoplasm of connective and other soft tissue, unspecified, N84.0 - Polyp of corpus uteri, N85.2 - Hypertrophy of uterus, R93.89 - Abnormal findings on diagnostic imaging of other specified body structures Coding Level of Care Code Est Pt Level 3 (20048) Diagnoses Fibroid D21.9 Enlarged uterus N85.2 Abnormal finding on ultrasound R93.89
== END 2024-08-11 10:55 | disposition home or self-care (01) ==
PROVIDERS: PCP Nurse Practitioner Primary Care; Visit Provider Advanced Practice Midwife
DX: D21.9 Benign neoplasm of connective and other soft tissue, unspecified (principal); N85.2 Hypertrophy of uterus; R93.89 Abnormal findings on diagnostic imaging of other specified body structures
CPT/HCPCS: 99213

== ENCOUNTER → 2024-08-11 09:20 | Outpatient (BNVA) | payer OTHER, SELFPAY | PROVIDERS: PCP Nurse Practitioner Primary Care; Visit Provider Advanced Practice Midwife | DX: N85.2 Hypertrophy of uterus (principal); D25.9 Leiomyoma of uterus, unspecified; R93.89 Abnormal findings on diagnostic imaging of other specified body structures | CPT/HCPCS: 99212 ==

== ENCOUNTER 2024-08-18 10:53 | Outpatient (REF) | payer OTHER, SELFPAY ==
--- NOTE | ~2024-08-18 | MM_ITS ---
EXAMINATION: MM SCREENING DIGITAL BREAST TOMOSYNTHESIS, BILATERAL CLINICAL INFORMATION: Screening. Asymptomatic. COMPARISON: Mammography: Baseline. TECHNIQUE: Digital breast mammography with tomosynthesis is performed in both the craniocaudal and mediolateral oblique views along with computer-aided detection (CAD). FINDINGS: The breasts are heterogeneously dense, which may obscure small masses (ACR BI-RADS breast composition Category c). There are no significant masses, abnormal calcifications, or other abnormalities. MM/MM tomosynthesis screening BI IMPRESSION: No mammographic evidence of malignancy. ASSESSMENT: BI-RADS BI-RADS 1 - Negative RECOMMENDATION: Routine annual mammography screening. 1 year F/U This examination should not preclude the clinical evaluation of a suspicious palpable abnormality. This patient's information was entered into a reminder system with a target due date for their next mammogram. Electronically signed by: Genie Barrera DO 08/26/2024 10:29 AM EVON
== END 2024-08-18 10:54 | disposition home or self-care (01) ==
LOC: HO.MAMMO 10:53
PROVIDERS: Visit Provider Advanced Practice Midwife
DX: Z12.31 Encounter for screening mammogram for malignant neoplasm of breast (principal)
CPT/HCPCS: 77063; 77067

== ENCOUNTER → 2024-08-18 11:00 | Outpatient (BNV) | payer OTHER, SELFPAY | PROVIDERS: Visit Provider Internal Medicine | DX: Z12.31 Encounter for screening mammogram for malignant neoplasm of breast (principal) | CPT/HCPCS: 77063; 77067 ==

== ENCOUNTER 2024-09-14 10:55 | Outpatient (REF) | payer OTHER, SELFPAY | END 2024-09-14 10:56 | disposition home or self-care (01) | LOC: HO.US 10:55 | PROVIDERS: Visit Provider Advanced Practice Midwife | DX: D21.9 Benign neoplasm of connective and other soft tissue, unspecified (principal) | CPT/HCPCS: 76830; 76856 ==

== ENCOUNTER → 2024-09-14 10:57 | Outpatient (BNV) | payer OTHER, SELFPAY | PROVIDERS: Visit Provider Radiology Diagnostic Radiology | DX: D25.9 Leiomyoma of uterus, unspecified (principal) | CPT/HCPCS: 76830; 76856 ==